=== PATIENT | female | born 1995 | race Hispanic/Latino ===

== ENCOUNTER 2017-12-18 09:39 | Inpatient (IN) | payer MEDICAID ==
[2017-12-18] MEDS ORDERED: LACTATED RINGERS 1,000 ML ONE ×2 (11:01→11:34)
--- NOTE | 2017-12-18 11:02 | Anesthesia Consultation ---
Anesthesia Consult and Med Hx Date of service: 12/18/17 - Airway Anesthetic Teeth Evaluation: Good ROM Head & Neck: Adequate Mental/Hyoid Distance: Adequate Mallampati Class: Class II Intubation Access Assessment: Probably Good - Pre-Operative Health Status ASA Pre-Surgery Classification: ASA2 Proposed Anesthetic Plan: Epidural, Spinal - Pulmonary Hx Asthma: No COPD: No Hx Pneumonia: No - Cardiovascular System Hx Hypertension: No - Central Nervous System Hx Seizures: No Hx Psychiatric Problems: No - Endocrine Hx Renal Disease: No Hx End Stage Renal Disease: No Hx Hypothyroidism: No Hx Hyperthyroidism: No - Hematic Hx Anemia: No Hx Sickle Cell Disease: No - Other Systems Hx Alcohol Use: No
[2017-12-18] MEDS ORDERED: PHENERGAN PO PRN (11:03)
[2017-12-18] MEDS ORDERED: DILAUDID IV PRN (11:03)
[2017-12-18] MEDS ORDERED: PHENERGAN PR PRN (11:03)
[2017-12-18] MEDS ORDERED: BENADRYL IV PRN (11:03)
[2017-12-18] MEDS ORDERED: TORADOL IV PRN (11:03)
[2017-12-18] MEDS ORDERED: NARCAN 0.4 MG/1 ML IV PRN ×2 (11:03→19:04)
[2017-12-18] MEDS ORDERED: ZOFRAN IV PRN (11:03)
--- NOTE | 2017-12-18 11:03 | Anesthesia Day of Surgery ---
Anesthesia Day of Surgery - Day of Surgery Patient Examined: Yes Patient H&P Reviewed: Yes Patient is NPO: Yes
[2017-12-18] MEDS: LACTATED RINGERS 1,000 ML IV SCH ×3 (11:30→12:20)
[2017-12-18] MEDS ORDERED: BICITRA PO ONE (11:39)
[2017-12-18] MEDS ORDERED: REGLAN IV ONE (11:39)
[2017-12-18] MEDS ORDERED: PEPCID IV ONE (11:39)
[2017-12-18] MEDS ORDERED: ANCEF/STERILE WATER 2 GM/20 ML 2 GM/20 ML SYRINGE IV NR (12:00)
[2017-12-18] MEDS ORDERED: SODIUM CHLORIDE FLUSH SYRINGE 10 ML IV NR ×2 (12:00→19:04)
[2017-12-18] MEDS ORDERED: PITOCin/NS 20 UNIT/1000ML DRIP 20 UNITS/1,000 ML BAG IV SCH ×2 (12:00→19:04)
[2017-12-18 12:08] LABS: Basophils % (Auto) 0.2 % (0.0-1.8); Eosinophils % (Auto) 0.3 % (0.0-4.3); Hematocrit 31.4 % (30.3-42.9); Hemoglobin 10.2 gm/dl (10.1-14.3); Lymphocytes # (Auto) 1.3 K/mm3 (1.2-5.4); Lymphocytes % (Auto) 20.8 % (13.4-35.0); Mean Corpuscular HGB Conc 33 % (30-34); Mean Corpuscular Volume 80 fl (79-97); Monocytes # (Auto) 0.5 K/mm3 (0.0-0.8); Monocytes % (Auto) 7.7 % (0.0-7.3); Platelet Count 191 K/mm3 (140-440); Red Blood Count 3.95 M/mm3 (3.65-5.03)
[2017-12-18 12:11] LABS: Mean Corpuscular Hemoglobin 26 pg (28-32)
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
[2017-12-18] MEDS ORDERED: WATER FOR IRRIG STERILE IR ONE (12:50)
[2017-12-18] MEDS ORDERED: NACL 0.9% IR ONE (12:50)
[2017-12-18] MEDS ORDERED: NEO SYNEPHRINE/NS Syringe(OR USE) IV ONE (13:06)
[2017-12-18] MEDS ORDERED: ZOFRAN ONE (13:40)
[2017-12-18] MEDS ORDERED: MORPHINE ONE (13:41)
[2017-12-18] MEDS ORDERED: TORADOL ONE (13:58)
[2017-12-18] MEDS ORDERED: LANSINOH TP PRN (19:04)
[2017-12-18] MEDS ORDERED: D5LR 1,000 ML IV SCH (19:04)
[2017-12-18] MEDS ORDERED: TUCKS PAD TP PRN (19:04)
[2017-12-19 01:10] LABS: Hematocrit 28.6 % (30.3-42.9); Hemoglobin 9.5 gm/dl (10.1-14.3)
[2017-12-19] MEDS: PERCOCET 5/325 PO PRN ×3 (06:30→22:22)
--- NOTE | 2017-12-19 09:28 | Operative Report ---
Operative Report Operative Report: The operative report for patient Lakia Kapoor Date of service 12/18/2017 Preoperative diagnosis: Intrauterine at 40-2/7 weeks 2. bradycardia Postoperative diagnosis: Same Procedure: Repeat low transverse section Surgeon: Dr. Viv Lambert EBL: 700 Urine output: 200 mL IV fluids: 1200 Findings: Viable [male] in the vertex occiput posterior position. Weight 7 lbs. 14 oz. 3576 g Apgars 9 and 9]. Otherwise normal pelvic anatomy Specimens: None Complications: None Procedure: The patient was admitted to the OR with IV running and in place. She was properly identified as herself. Her spinal had been placed in the room and she was already under the effects of anesthesia upon entry into the OR. She was placed in the dorsal supine position with a leftward tilt. A Huerta catheter was inserted. She was then prepped and draped in the normal sterile fashion. An Allis test was used to confirm adequate anesthesia. Once confirmed , the incision was made with the scalpel and carried to the underlying fascia using the scalpel and the Bovie. The fascia was incised in the midline and incision was extended bilaterally using the curved Hernandez scissors. The fascia was then dissected from the underlying rectus muscles in a series of sharp and blunt dissection using the Hernandez scissors. Muscles were in the in the midline sharply using Metzenbaum scissors and the peritoneum was entered into bluntly using the surgeon's fingers. A bladder blade was then placed into the incision to protect the bladder. Following this the bladder flap was created. Hysterotomy incision was then made in the scalpel. Upon uterine entry, the amniotic sac was ruptured for clear fluid. The infant was then delivered in the occiput [posterior] position. His mouth and nose were suctioned on the field. The cord was clamped and cut and he was handed to the waiting NICU personnel. The uterus was then exteriorized and cleared of all clots and debris. The hysterotomy incision was then closed in a running locked fashion using 0 Vicryl. The abdomen was then copiously irrigated with warm normal saline. Following this the uterus was replaced into the abdominal cavity. At this point the muscles were reapproximated in the midline using individual sutures of 0 Vicryl. Following this the fascia was closed in a running fashion using 0 Vicryl. Tissue was then copiously irrigated. A retention suture was placed in the subcuticular fat. Skin was closed in a running fashion using 3-0 Monocryl. The sponge lap needle and instrument counts were correct 2. The patient tolerated the procedure well. She was taken to recovery in stable condition.
--- NOTE | 2017-12-19 09:29 | Progress Note ---
Assessment and Plan POD 1 s/p ltcs. Doing well. Plan for discharge on tomorrow if all is well. Subjective - Subjective Date of service: 12/19/17 Interval history: Patient is a 22 year old who presents for elective repeat at term. Her EDC is 12/24/17. She has had an uncomplicated course Patient reports: appetite normal, voiding normally, pain well controlled, ambulating normally : doing well Objective - Vital Signs Latest vital signs: Vital Signs Temp Pulse Resp BP BP Pulse Ox 12/19/17 06:30 18 12/18/17 23:30 98.7 F 72 16 112/66 12/18/17 16:20 98.1 F 76 18 110/65 12/18/17 15:52 16 12/18/17 15:22 14 12/18/17 14:45 59 L 10 L 108/68 99 12/18/17 14:03 97.6 F 72 14 111/63 99 12/18/17 11:56 97.7 F 78 14 98/63 98 Intake and Output 12/18/17 12/19/17 12/19/17 22:59 06:59 14:59 Intake Total 700 Output Total 1200 1200 Balance -1200 -500 Intake: Oral 400 Intake, Free Water 300 Output: Urine 700 1200 Uretheral (Huerta) 700 700 Void 500 Emesis 500 Other: Total, Intake Amount 200 Total, Output Amount 300 500 - Exam Lungs: Present: Clear to auscultation, Normal air movement Abdomen: Present: normal appearance, soft Extremities: Present: normal Incision: Present: normal, dry, intact - Labs Labs: Abnormal lab results 12/18/17 12/19/17 Range/Units 10:55 00:45 Hgb 9.5 L (10.1-14.3) gm/dl Hct 28.6 L (30.3-42.9) % MCH 26 L (28-32) pg [place] % (Auto) 7.7 H (0.0-7.3) % Seg Neutrophils % 71.0 H (40.0-70.0) %
[2017-12-19] MEDS ORDERED: PRENATAL VITAMIN PO SCH (10:00)
[2017-12-19] MEDS: MOTRIN PO PRN ×3 (10:18→22:23)
[2017-12-19 13:08] LABS: Amphetamine Screen,Urine PRESUMPTIVE NEGATIVE; Benzodiazepines Screen,Urine PRESUMPTIVE NEGATIVE; Cannabinoid Screen,Urine PRESUMPTIVE NEGATIVE; Cocaine Screen,Urine PRESUMPTIVE NEGATIVE; Methadone Screen,Urine PRESUMPTIVE NEGATIVE; Opiate Screen,Urine PRESUMPTIVE NEGATIVE
[2017-12-20] MEDS: MOTRIN PO PRN ×2 (05:37→14:12)
[2017-12-20] MEDS: PERCOCET 5/325 PO PRN ×2 (09:53→14:11)
--- NOTE | 2017-12-20 13:48 | Progress Note ---
Assessment and Plan O: VSS AF PP H/H: 9.5/28.6 A: Stable PP Day 2 S/P Repeat C/S P: Iron BId Gas X Binder D/C home with flatus Subjective - Subjective Date of service: 12/20/17 Patient reports: appetite normal, voiding normally, pain well controlled, ambulating normally, other (Tolerating regular diet w/o N/v but no flatus), no flatus [place]: doing well Objective - Vital Signs Latest vital signs: Vital Signs Temp Pulse Resp BP BP Pulse Ox 12/20/17 09:53 20 12/20/17 08:43 98.4 F 91 H 18 112/70 97 12/20/17 01:10 98.5 F 89 18 112/63 12/19/17 16:36 18 12/19/17 16:17 97.7 F 75 18 103/65 98 Intake and Output 12/19/17 12/20/17 12/20/17 22:59 06:59 14:59 Intake Total 1440 720 960 Balance 1440 720 960 Intake: Oral 1440 240 Intake, Free Water 720 720 Other: Total, Intake Amount 720 240 Voiding Method Toilet # Voids 1 Void 1 2 1 - Exam Breasts: Present: deferred Abdomen: Present: normal appearance, soft, distention (mild) Uterus: Present: normal, firm, tenderness, fundal height below umbilicus (2 below , U, ML). Absent: bogginess Extremities: Present: edema (trace) Incision: Present: normal, dry, intact, dressed
--- NOTE | 2017-12-20 13:50 | Discharge Summary ---
Providers - Providers Date of Admission: 12/18/17 09:39 Date of discharge: 12/20/17 Attending physician: BALDEMAR KRAMER Primary care physician: BALDEMAR KRAMER Hospitalization Reason for admission: section, IUP at term Delivery: Procedure: repeat low transverse Episiotomy: none Laceration: none Incision: normal, dry, intact Other procedures: none complications: none Discharge diagnosis: IUP at term delivered [place] baby: female Condition at discharge: Good Disposition: DC-01 TO HOME OR SELFCARE Plan - Discharge Medications Prescriptions: Docusate Sodium [Colace] 100 mg PO BID PRN #60 capsule PRN Reason: constipation Ferrous Sulfate [Feosol 325 MG tab] 325 mg PO TID #120 tablet Ibuprofen [Motrin 800 MG tab] 800 mg PO Q6H PRN #60 tablet PRN Reason: Pain oxyCODONE /ACETAMINOPHEN [Percocet 5/325 mg] 2 tab PO Q4H PRN #40 tablet PRN Reason: Pain, Moderate (4-6) - Provider Discharge Summary Activity: routine, no sex for 6 weeks, no heavy lifting 4 weeks, no strenuous exercise Diet: routine Instructions: routine Additional instructions: [] Smoking cessation referral if applicable(refer to patient education folder for contact #) [] Refer to [facility]'s [facility] Booklet Call your doctor immediately for: * Fever > 100.5 * Heavy vaginal bleeding ( >1 pad per hour) * Severe persistent headache * Shortness of breath * Reddened, hot, painful area to leg or breast * Drainage or odor from incision. * Keep incision clean and dry at all times and follow doctor's instructions regarding bathing/showering - Follow up plan Follow up: BALDEMAR KRAMER MD [Primary Care Provider] - 14 Days (RTO 2 weeks incision check)
[2017-12-20] MEDS ORDERED: MILK OF MAGNESIA PO PRN (13:52)
[2017-12-20] MEDS ORDERED: MYLICON PO PRN (13:52)
[2017-12-20 18:10] VITALS: BP 110/63
== END 2017-12-20 21:00 | disposition home or self-care (01) | DRG 766 ==
LOC: APU 09:39 → OB 16:21
PROVIDERS: ADMIT Obstetrics & Gynecology; ATTEND Obstetrics & Gynecology
PROC: 10D00Z1 Extraction of Products of Conception, Low, Open Approach (ICD-10-PCS; principal; 2017-12-18)
DX: O34.211 Maternal care for low transverse scar from previous cesarean delivery (principal); Z3A.39 39 weeks gestation of pregnancy; Z37.0 Single live birth; O76 Abnormality in fetal heart rate and rhythm complicating labor and delivery
CPT/HCPCS: 36415; 80307; 85014; 85018; 85025; 86850; 86900; 86901; 99211; A6250; G0463; J0690; J1170; J1885; J2270; J2370; J2405; J2590; J2765; J7120